=== PATIENT | male | born 1985 | race Caucasian/White ===

== ENCOUNTER 2022-12-22 18:21 | Emergency (ER) | payer MEDICAID, OTHER ==
[~2022-12-22] VITALS: Ht 180.3 cm; Wt 130.0 kg
[2022-12-22 19:01] LABS: BASOPHILS % (AUTO) 0.5 % (0-1); HEMOGLOBIN 16.4 g/dl (14.0-17.9); MONOCYTES # (AUTO) 0.5 X10'3 (0-0.9); NEUTROPHILS # (AUTO) 5.7 X10'3 (1.8-7.7); RED CELL DISTRIBUTION WIDTH 13.5 % (11.5-14.5)
[2022-12-22 19:03] LABS: BASOPHILS # (AUTO) 0.1 X10'3 (0-0.2); EOSINOPHILS # (AUTO) 0.2 X10'3 (0-0.9); EOSINOPHILS % (AUTO) 1.7 % (0-6); HEMATOCRIT 47.7 % (42.0-52.0); LYMPHOCYTES # (AUTO) 2.8 X10'3 (1.1-4.8); MEAN CORPUSCULAR HEMOGLOBIN 29.7 PG (27.0-31.0); MEAN CORPUSCULAR HGB CONC 34.4 g/dL (33.0-36.5); MEAN CORPUSCULAR VOLUME 86.3 FL (78-98); MONOCYTES % (AUTO) 5.9 % (2-12); NEUTROPHILS % (AUTO) 61.9 % (42-75); PLATELET COUNT 177 X10'3 (140-440); RED BLOOD COUNT 5.53 X10'6 (4.70-6.10); WHITE BLOOD COUNT 9.2 X10'3 (4.5-11.0)
[2022-12-22 19:11] LABS: ALANINE AMINOTRANSFERASE 39 U/L (12-78); ALBUMIN 4.2 G/DL (3.4-5.0); ALBUMIN/GLOBULIN RATIO 1.2 (1.1-1.5); ALKALINE PHOSPHATASE 82 IU/L (46-116); ANION GAP 10 (8-16); ASPARTATE AMINO TRANSFERASE 23 U/L (10-37); BILIRUBIN,TOTAL 0.9 MG/DL (0.1-1.0); BLOOD UREA NITROGEN 13 MG/DL (7-18); BUN/CREATININE RATIO 10.8 (5.4-32.0); CALCIUM 9.2 MG/DL (8.5-10.1); CHLORIDE 104 MMOL/L (99-107); GLUCOSE 101 MG/DL (70-104); POTASSIUM 3.7 MMOL/L (3.5-5.1); SODIUM 141 MMOL/L (135-145); TOTAL CARBON DIOXIDE 26.7 MMOL/L (24-32); TOTAL PROTEIN 7.6 G/DL (6.4-8.2); eGFR 67 ML/MIN
[2022-12-22 19:15] LABS: MAGNESIUM 2.1 MG/DL (1.5-2.4)
[2022-12-22] MEDS ORDERED: AMLO5TAB16 PO (22:38)
[2022-12-22] MEDS ORDERED: amLODIPine 5mg tablet PO ONE (22:40)
[2022-12-22 22:54] LABS: CHOL/HDL RATIO 3.2 (0.00-4.99); CHOLESTEROL 175 MG/DL (0-200); HDL CHOLESTEROL 55 MG/DL (35-60); LDL CHOLESTEROL 100 MG/DL (50-100); TRIGLYCERIDES 86 MG/DL (20-135)
[2022-12-22 23:01] VITALS: BP 155/87
== END 2022-12-22 23:04 | disposition home or self-care (01) ==
LOC: ER 18:23
DX: R07.89 Other chest pain (principal); I10 Essential (primary) hypertension; Z88.1 Allergy status to other antibiotic agents; Z88.8 Allergy status to other drugs, medicaments and biological substances; Z56.0 Unemployment, unspecified
CPT/HCPCS: 36415; 80053; 80061; 83735; 83880; 84484; 85025; 93005; 99284

== ENCOUNTER 2023-05-05 13:09 | Emergency (ER) | payer SELFPAY ==
[~2023-05-05] VITALS: Ht 175.3 cm; Wt 112.4 kg
[~2023-05-05 13:09] MED LIST: AMLO5TAB16 PO
[2023-05-05 15:22] VITALS: BP 125/72
== END 2023-05-05 16:39 | disposition home or self-care (01) ==
LOC: ER 13:09
DX: H02.402 Unspecified ptosis of left eyelid (principal); I10 Essential (primary) hypertension; Z88.1 Allergy status to other antibiotic agents; Z88.8 Allergy status to other drugs, medicaments and biological substances; Z56.0 Unemployment, unspecified
CPT/HCPCS: 70450; 99284